=== PATIENT | female | born 1940 | race Asian ===

== ENCOUNTER 2017-03-01 23:45 | Emergency (ER) | payer OTHER ==
[~2017-03-01] VITALS: Ht 147.3 cm; Wt 56.8 kg
[~2017-03-01 23:45] MED LIST: ALLEGRA180 MG PO; ANUSOL-HC21 GM PR; DIOVAN80 MG PO; Flonase BOTH NARES; OSCAL, OYSTER500 MG PO; PATANASE30.5 GM NS; Prevacid PO; TYLENOL WITH C1 EACH PO; Toprol XL PO; VITAMIN D2000 INTUN PO
[2017-03-02] MEDS ORDERED: ULTRAM50 MG PO (03:19)
[2017-03-02 03:41] VITALS: BP 158/88
== END 2017-03-02 04:00 | disposition home or self-care (01) ==
LOC: EME 23:45
DX: S30.0XXA Contusion of lower back and pelvis, initial encounter (principal); S00.03XA Contusion of scalp, initial encounter; I10 Essential (primary) hypertension; E78.5 Hyperlipidemia, unspecified; K21.9 Gastro-esophageal reflux disease without esophagitis; W01.198A Fall on same level from slipping, tripping and stumbling with subsequent striking against other object, initial encounter; Y92.512 Supermarket, store or market as the place of occurrence of the external cause; Z87.891 Personal history of nicotine dependence; Z90.13 Acquired absence of bilateral breasts and nipples; Z85.3 Personal history of malignant neoplasm of breast; Z88.8 Allergy status to other drugs, medicaments and biological substances
CPT/HCPCS: 70450; 72125; 72170; 72220; 99281; 99284